=== PATIENT | female | born 1930 | race Caucasian/White ===

== ENCOUNTER 2016-11-19 19:08 | Inpatient (IN) | payer MEDICARE ==
[~2016-11-19] VITALS: Ht 152.4 cm; Wt 51.3 kg
[~2016-11-19 19:08] MED LIST: CITA40TA11 PO; DABI150C PO; DOCU-25 PO; DONE5TAB3 PO; LEVE250T2 PO; MAGN400T6 PO; METO-302 PO; MYRBETRIQ PO; POLY17PO4 PO; VITA1TAB28 PO
--- NOTE | 2016-11-19 19:10 | NUR ---
PT BIB DAUGHTER TO ER BED 07 STATING PT IS ACTIVELY HAVING SIEIZURE. PT GOWNED AND PLACED ON MONITOR. STABLE VITALS AT THIS TIME. PT IS AAO, DENIES PAIN. NOTED TO BE TOOTH GRINDING. PER FAMILY PT IS BEEN GRINDING TEETH X 2 YEARS. 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 AWAITING MD CASTILLO.
--- NOTE | 2016-11-19 20:34 | NUR ---
DR FLOYD AT BEDSIDE FOR EVAL.
[2016-11-19] MEDS ORDERED: LORAZEPAM INJ 2 MG/ML VIAL ONE (20:43)
[2016-11-19 20:52] LABS: BASOPHILS % (AUTO) 0.5 % (0.0-2.0); EOSINOPHILS % (AUTO) 0.6 % (0.0-6.0); HEMATOCRIT 40 % (33-45); HEMOGLOBIN 13.2 g/dL (11.5-14.8); LYMPHOCYTES # (AUTO) 0.9 /CMM (0.8-4.8); LYMPHOCYTES % (AUTO) 14.3 % (20.0-44.0); MEAN CORPUSCULAR HEMOGLOBIN 30 PG (26.0-33.0); MEAN CORPUSCULAR HGB CONC 33 g/dl (31.0-36.0); MEAN CORPUSCULAR VOLUME 91 fL (82-100); MONOCYTES # (AUTO) 0.4 /CMM (0.1-1.30); NEUTROPHILS # (AUTO) 4.8 /CMM (1.8-8.9); NEUTROPHILS % (AUTO) 78.6 % (43.0-81.0); PLATELET COUNT (AUTO) 223 /CMM (150-450); RDW COEFFICIENT OF VARIATION 13.1 (11.5-15.0); RED BLOOD CELL COUNT(AUTO) 4.37 MIL/uL (4.0-5.2); WHITE BLOOD COUNT (AUTO) 6.1 K/uL (4.3-11.0)
--- NOTE | 2016-11-19 20:54 | NUR ---
PT TO RADIOLOGY FOR HEAD CT SCAN VIA [facility].
[2016-11-19] MEDS ORDERED: LORAZEPAM INJ 2 MG/ML VIAL IVP ONE (21:00)
[2016-11-19 21:03] LABS: CALCIUM, SERUM 9.5 mg/dL (8.5-10.1); CARBON DIOXIDE 31 mmol/L (21-32); CHLORIDE 94 mmol/L (98-107); CREATININE 0.9 mg/dL (0.6-1.3); GLUCOSE 124 mg/dL (74-106); POTASSIUM 4.6 mmol/L (3.5-5.1); SODIUM SERUM 131 mmol/L (136-145); UREA NITROGEN, BLOOD 11 mg/dL (7-18)
[2016-11-19 21:06] LABS: PROTHROMBIN TIME 10.4 SECS (9.5-12.7)
[2016-11-19 21:11] LABS: TROPONIN I < 0.017 ng/mL (0.00-0.056)
--- NOTE | 2016-11-19 21:27 | NUR ---
CALLED NURSING COMPUTER INFORMATION SYSTEMS PROFESSOR FOR [facility] BED
[2016-11-19] MEDS ORDERED: MAG HYDROX/AL HYDROX/SIMETH 30 ML UDC PO PRN (21:30)
[2016-11-19] MEDS ORDERED: ONDANSETRON HCL/PF 4 MG/2 ML VIAL IVP PRN (21:30)
[2016-11-19] MEDS ORDERED: LORAZEPAM INJ 2 MG/ML VIAL IV PRN (21:30)
[2016-11-19] MEDS ORDERED: TEMAZEPAM 15 MG CAPSULE PO PRN (21:30)
[2016-11-19] MEDS ORDERED: Z GUARD REMEDY 2 OZ OINT TP PRN (21:30)
[2016-11-19] MEDS ORDERED: MAGNESIUM HYDROXIDE 30 ML UDC PO PRN (21:30)
[2016-11-19] MEDS ORDERED: ENOXAPARIN SODIUM 40 MG/0.4 ML DISP.SYRIN SQ SCH (21:30)
[2016-11-19 21:49] LABS: APPEARANCE,URINE Clear (CLEAR); BILIRUBIN,URINE Negative (NEGATIVE); BLOOD, URINE Negative Ery/uL (NEGATIVE); COLOR,URINE Yellow (YELLOW); KETONES,URINE Negative (NEGATIVE); LEUKOCYTE ESTERASE ,URINE Negative (NEGATIVE); NITRITE, URINE Negative (NEGATIVE); PROTEIN,URINE Negative (NEGATIVE); UGLUCOSE Negative (NEGATIVE); UROBILINOGEN,URINE 0.2 EU/dL (0.2)
--- NOTE | 2016-11-19 22:10 | NUR ---
NURSE STILL UNAVAILABLE TO TAKE REPORT.
--- NOTE | 2016-11-19 22:16 | NUR ---
REPORT GIVEN TO DESEAN. PT AWAITING TRANSFER TO FLOOR.
[2016-11-19 22:25] VITALS: BP 130/67
--- NOTE | 2016-11-19 23:15 | NUR ---
RN NOTES ADMITTED A PATIENT FROM ER VIA STRETCHER. NO ACUTE RESP DISTRESS. AOX 2 WITH CONFUSION SHOWS. ACCOMPANIED BY DAUGHTER. AFEBRILE. FOLLOWS COMMAND. PT DIAGNOSED WITH SEIZURE WITH HISTORY OF CVA, DEMENTIA, SEIZURE, A-FIB AND HYPOTHYROIDISM. NO KNOWN ALLERGIES. PLACED ON TELE MONITOR. REVEALS SB @ 55. IV SITE ON RAC G 18 INTACT AND PATENT. SKIN ASSESSMENT DONE NOTED WITH LEFT ARM SKIN TEAR, CLEANSED WITH NS PAT DRY APPLIED MEPILEX. OFFLOADED EXT WITH PILLOWS. CALLED AND SPOKE TO MICHAEL WALTERS AND VERIFIED ORDERS. KEPT PT CLEAN AND DRY WILL CONTINUE TO MONITOR.
[2016-11-19] MEDS ORDERED: DONEPEZIL 5 MG TABLET ONE (23:23)
[2016-11-19] MEDS ORDERED: ENOXAPARIN SODIUM 40 MG/0.4 ML DISP.SYRIN SQ ONE (23:24)
[2016-11-19] MEDS ORDERED: ATORVASTATIN 10 MG TABLET ONE (23:25)
[2016-11-19] MEDS: DONEPEZIL 5 MG TABLET PO SCH (23:27)
[2016-11-19] MEDS: ATORVASTATIN 10 MG TABLET PO SCH (23:27)
[2016-11-19] MEDS: IV NS 0.9% 1,000 ML IV PRN (23:28)
[2016-11-20] VITALS: BP 134/68
[2016-11-20 04:00] VITALS: BP 145/72
--- NOTE | 2016-11-20 05:50 | NUR ---
RN NOTES PT REMAINED IN STABLE CONDITION. NO EPISODE OF SEIZURE. BREATHING EVEN AND UNLABORED.SB HR 55 ON TELE MONITOR. PT IS EASILY FORGET ALWAYS WANTED TO URINATE IN THE BATHROOM THAT MAKE HER SITTING AND TRYING TO GO OOB. FREQUENTLY REMINDED ABOUT THE F/C WAS PLACED ON HER. PT FOLLOWED COMMAND AND UNDERSTAND BUT FORGETFUL. BED LOCKED AND SECURED PLACED IN LOWEST POSSIBLE POSITION. PT VS STABLE. KEPT PT CLEAN AND COMFORTABLE IN BED. CONTINUE TO MONITOR.
[2016-11-20 05:56] LABS: BASOPHILS % (AUTO) 0.4 % (0.0-2.0); EOSINOPHILS % (AUTO) 0.1 % (0.0-6.0); HEMATOCRIT 35 % (33-45); HEMOGLOBIN 12.2 g/dL (11.5-14.8); LYMPHOCYTES # (AUTO) 1.2 /CMM (0.8-4.8); LYMPHOCYTES % (AUTO) 22.4 % (20.0-44.0); MEAN CORPUSCULAR HEMOGLOBIN 31 PG (26.0-33.0); MEAN CORPUSCULAR HGB CONC 34 g/dl (31.0-36.0); MEAN CORPUSCULAR VOLUME 91 fL (82-100); MONOCYTES # (AUTO) 0.5 /CMM (0.1-1.30); MONOCYTES % (AUTO) 8.7 % (2.0-12.0); NEUTROPHILS # (AUTO) 3.7 /CMM (1.8-8.9); NEUTROPHILS % (AUTO) 68.4 % (43.0-81.0); PLATELET COUNT (AUTO) 188 /CMM (150-450); RDW COEFFICIENT OF VARIATION 14.3 (11.5-15.0); RED BLOOD CELL COUNT(AUTO) 3.89 MIL/uL (4.0-5.2); WHITE BLOOD COUNT (AUTO) 5.5 K/uL (4.3-11.0)
[2016-11-20 06:07] LABS: CARBON DIOXIDE 30 mmol/L (21-32); CHLORIDE 101 mmol/L (98-107); SODIUM SERUM 138 mmol/L (136-145)
[2016-11-20 06:20] LABS: CALCIUM, SERUM 8.8 mg/dL (8.5-10.1); CREATININE 0.8 mg/dL (0.6-1.3); GLUCOSE 79 mg/dL (74-106); MAGNESIUM 1.9 mg/dL (1.8-2.4); PHOSPHORUS 3.6 mg/dL (2.5-4.9); UREA NITROGEN, BLOOD 8 mg/dL (7-18)
[2016-11-20 08:00] VITALS: BP_SYST 133; BP_SYST 137; BP_DIAS 61; BP_DIAS 76
[2016-11-20] MEDS ORDERED: DONE5TAB34 PO (08:48)
[2016-11-20] MEDS ORDERED: AMIO200T2 PO (08:48)
[2016-11-20] MEDS ORDERED: ATOR10TA PO (08:48)
[2016-11-20] MEDS ORDERED: GABA-532 PO (08:48)
[2016-11-20] MEDS ORDERED: APIX2.5T PO (08:48)
[2016-11-20] MEDS ORDERED: LEVE100S PO (08:48)
[2016-11-20] MEDS ORDERED: ENOXAPARIN SODIUM 40 MG/0.4 ML DISP.SYRIN SQ SCH (08:53)
[2016-11-20 09:04] LABS: THYROID STIMULATING HORMONE 1.877 uIU/mL (0.358-3.74)
[2016-11-20 09:05] LABS: LDL 73 mg/dL (0-99); TRIGLYCERIDES 21 mg/dL (30-150)
[2016-11-20 09:17] LABS: CHOLESTEROL 191 mg/dL (<200); HDL CHOLESTEROL 107 mg/dL (40-60)
[2016-11-20] MEDS ORDERED: APIXABAN 2.5 MG TABLET PO ONE (09:30)
[2016-11-20] MEDS: GABAPENTIN 100 MG CAPSULE PO SCH (09:47)
[2016-11-20] MEDS: FAMOTIDINE/PF INJ 20 MG/2 ML VIAL IV SCH ×2 (09:47→18:11)
[2016-11-20] MEDS: LEVOTHYROXINE SODIUM 25 MCG TABLET PO SCH (09:47)
[2016-11-20] MEDS: AMIODARONE HCL 200 MG TABLET PO SCH (09:48)
[2016-11-20] MEDS: LEVETIRACETAM SOL (5 ML) 100 MG/ML UDC PO SCH ×2 (09:48→21:11)
[2016-11-20 09:57] LABS: BILIRUBIN,DIRECT 0.1 mg/dL (0.0-0.2); BILIRUBIN,TOTAL 0.5 mg/dL (0.2-1.0)
[2016-11-20 09:58] LABS: ALBUMIN 3.9 g/dL (3.4-5.0); TOTAL PROTEIN, SERUM 7.2 g/dL (6.4-8.2)
[2016-11-20] MEDS ORDERED: VALPROATE 750 MG in IV D5W 100 ML IV STA (10:00)
[2016-11-20 12:00] VITALS: BP_SYST 111; BP_SYST 115; BP_DIAS 57; BP_DIAS 69
--- NOTE | 2016-11-20 15:47 | NUR ---
RN NOTE LEFT MESSAGE TO DR HERRERA REGARDING VALPROIC ACID.
[2016-11-20 16:00] VITALS: BP 139/76
[2016-11-20] MEDS: APIXABAN 2.5 MG PO SCH (18:11)
[2016-11-20] MEDS: QUETIAPINE FUMARATE 25 MG TABLET PO SCH (18:33)
--- NOTE | 2016-11-20 19:35 | NUR ---
RN INITIAL NOTE RECEIVED PT IN NO ACUTE DISTRESS IN BED. PT IS A/O X 2 WITH PERIODS OF CONFUSION. PT HAS FAMILY AT BEDSIDE. PT IS ON TELE WITH SB @ 39. PT HAS F/C THAT IS CLEAN DRY INTACT AND PATENT WITH ALFONSO COLOR URINE DRAINING. PT HAS RAC 18G THAT IS CLEAN DRY INTACT AND PATENT WITH NS @ 75ML/HR INFUSING. BED IN LOW LOCK POSITION WITH RIALS UP X 2. CALL LIGHT WITHIN REACH AND ALL SAFETY MEASURES ENSURED AND CARRIED OUT. WILL CONTINUE TO MONITOR FOR ANY CHANGES IN CONDITION.
[2016-11-20 20:00] VITALS: BP 137/71
[2016-11-20] MEDS: DIVALPROEX SODIUM 500 MG TABLET.DR PO SCH (21:11)
[2016-11-20] MEDS: DONEPEZIL 5 MG TABLET PO SCH (21:11)
[2016-11-20] MEDS: ATORVASTATIN 10 MG TABLET PO SCH (21:11)
[2016-11-21] VITALS: BP 122/73
[2016-11-21 04:00] VITALS: BP 151/82
[2016-11-21] MEDS: IV NS 0.9% 1,000 ML IV PRN (04:51)
--- NOTE | 2016-11-21 06:47 | NUR ---
RN CLOSING NOTE PT REMAINS IN NO ACUTE DISTRESS IN BED. PT DID NOT HAVE ANY SIGNIFICANT CHANGE IN CONDITION DURING SHIFT. ALL NEEDS MET, ALL ORDERS CARRIED OUT. WILL ENDORSE CARE TO AM RN FOR CONTINUITY OF CARE.
--- NOTE | 2016-11-21 07:27 | NUR ---
RN NOTES PT RECEIVED IN STABLE CONDITION. A&OX2 WITH PERIODS OF CONFUSION, PT REORIENTED. CAREGIVER AT BEDSIDE. ON ROOM AIR NO DISTRESS NOTED. SB ON THE MONITOR HR 49. CRUZ DRAINING TO GRAVITY. RFA 20 GAUGE IV SITE DRY AND INTACT IVF RUNNING AT 75ML/HR. BED LOCKED AND IN LOWEST POSITION, SIDE RAILS UPX3, CALL LIGHT WITHIN REACH. WILL CONT TO MONITOR.
[2016-11-21 08:00] VITALS: BP 137/76
[2016-11-21] MEDS: FAMOTIDINE/PF INJ 20 MG/2 ML VIAL IV SCH ×2 (08:12→16:11)
[2016-11-21] MEDS: LEVETIRACETAM SOL (5 ML) 100 MG/ML UDC PO SCH ×2 (08:12→21:23)
[2016-11-21] MEDS: CALCIUM CARB 600MG /VIT D 1 EACH TABLET PO SCH (08:13)
[2016-11-21] MEDS: DIVALPROEX SODIUM 500 MG TABLET.DR PO SCH ×2 (08:13→21:17)
[2016-11-21] MEDS: QUETIAPINE FUMARATE 25 MG TABLET PO SCH ×2 (08:13→16:11)
[2016-11-21] MEDS: LEVOTHYROXINE SODIUM 25 MCG TABLET PO SCH (08:13)
[2016-11-21] MEDS: GABAPENTIN 100 MG CAPSULE PO SCH (08:13)
[2016-11-21] MEDS: APIXABAN 2.5 MG PO SCH ×2 (08:15→16:11)
[2016-11-21] MEDS: AMIODARONE HCL 200 MG TABLET PO SCH (08:28)
[2016-11-21 12:00] VITALS: BP 135/71
--- NOTE | 2016-11-21 13:00 | NUR ---
RN NOTES HEALTH LEAD ANTHONY RIDLEY AT BEDSIDE, NOTIFIED OF PINK TINGED URINE, URINALYSIS ORDERED.
--- NOTE | 2016-11-21 13:39 | NUR ---
RN NOTES URINE SPECIMEN COLLECTED, CALLED LAB, THEN CRUZ DISCONTINUED PER ROMEO RIDLEY.
[2016-11-21] MEDS ORDERED: LEVO25TA7 PO (13:42)
[2016-11-21] MEDS ORDERED: DIVA500T2 PO (13:42)
[2016-11-21] MEDS ORDERED: Calcium Carb 600MG /Vit D PO (13:42)
[2016-11-21] MEDS ORDERED: LEVE100S PO (13:42)
[2016-11-21 13:53] LABS: BASOPHILS % (AUTO) 0.3 % (0.0-2.0); EOSINOPHILS % (AUTO) 0.5 % (0.0-6.0); HEMATOCRIT 35 % (33-45); HEMOGLOBIN 11.8 g/dL (11.5-14.8); LYMPHOCYTES # (AUTO) 0.9 /CMM (0.8-4.8); LYMPHOCYTES % (AUTO) 15.3 % (20.0-44.0); MEAN CORPUSCULAR HEMOGLOBIN 31 PG (26.0-33.0); MEAN CORPUSCULAR HGB CONC 34 g/dl (31.0-36.0); MEAN CORPUSCULAR VOLUME 92 fL (82-100); MONOCYTES # (AUTO) 0.4 /CMM (0.1-1.30); MONOCYTES % (AUTO) 7.3 % (2.0-12.0); NEUTROPHILS # (AUTO) 4.7 /CMM (1.8-8.9); NEUTROPHILS % (AUTO) 76.6 % (43.0-81.0); PLATELET COUNT (AUTO) 200 /CMM (150-450); RDW COEFFICIENT OF VARIATION 13.9 (11.5-15.0); RED BLOOD CELL COUNT(AUTO) 3.84 MIL/uL (4.0-5.2); WHITE BLOOD COUNT (AUTO) 6.1 K/uL (4.3-11.0)
[2016-11-21] MEDS: ACETAMINOPHEN 325 MG TABLET PO PRN (13:55)
[2016-11-21 13:56] LABS: APPEARANCE,URINE CLOUDY (CLEAR); BILIRUBIN,URINE NEGATIVE (NEGATIVE); BLOOD, URINE 3+ Ery/uL (NEGATIVE); COLOR,URINE YELLOW (YELLOW); KETONES,URINE TRACE (NEGATIVE); LEUKOCYTE ESTERASE ,URINE 1+ (NEGATIVE); NITRITE, URINE POSITIVE (NEGATIVE); PH,URINE 7.5 (5.0-8.0); PROTEIN,URINE 1+ mg/dl (NEGATIVE); UGLUCOSE NEGATIVE (NEGATIVE); UROBILINOGEN,URINE 0.2 EU/dL (0.2)
[2016-11-21 14:03] LABS: CALCIUM, SERUM 8.6 mg/dL (8.5-10.1); CARBON DIOXIDE 28 mmol/L (21-32); CHLORIDE 105 mmol/L (98-107); CREATININE 0.8 mg/dL (0.6-1.3); GLUCOSE 98 mg/dL (74-106); POTASSIUM 4.7 mmol/L (3.5-5.1); SODIUM SERUM 141 mmol/L (136-145); UREA NITROGEN, BLOOD 7 mg/dL (7-18)
[2016-11-21 14:57] LABS: BACTERIA,URINE Rare /HPF (None Seen); RBC,URINE 81-100 /HPF (0-2); SQUAMOUS EPITHELIAL CELL,UR Few /HPF (None Seen)
[2016-11-21 16:00] VITALS: BP 149/84
[2016-11-21] MEDS: NITROFURANTOIN/NITROFURAN MAC 100 MG CAPSULE PO SCH ×2 (16:11→21:17)
--- NOTE | 2016-11-21 18:22 | NUR ---
RN NOTES PT HAVING DINNER IN BED WITH DAUGHTER AT THE BEDSIDE ASSISTING HER. PT REMAINED IN STABLE CONDITION THROUGHOUT THE SHIFT. NO SIGNIFICANT CHANGES NOTED. NO NEW ONSET OF SEIZURES NOTED. ALL NEEDS MET. WILL ENDORSE REPORT TO ONCOMING SHIFT.
--- NOTE | 2016-11-21 19:45 | NUR ---
[facility]/AVIATION NEUROPSYCHOLOGIST DAUGHTER AT BEDSIDE GOING HOME NOW, BED ALARM WAS PLACED ON DUE TO NOBODY BEING ROOM. CAREGIVER IS GOING HOME, TOO AT THIS TIME. CAREGIVER IS ONLY TO BE IN ROOM WHILE DAUGHTER IS THERE.
[2016-11-21 20:00] VITALS: BP 139/83
[2016-11-21] MEDS: ATORVASTATIN 10 MG TABLET PO SCH (21:16)
[2016-11-21] MEDS: DONEPEZIL 5 MG TABLET PO SCH (21:17)
--- NOTE | 2016-11-21 22:20 | NUR ---
MARILY/WEB DESIGNER DEVELOPER PT HAS TRIED MANY TIMES TO GET OUT OF BED, ALARM IS SET. CHARGE NURSE AWARE OF THE ISSUES WITH PT. CONVEYANCER IS SITTING AND WATCHING PT UNTIL NURSE IS ABLE TO SIT WITH PT.
[2016-11-22] VITALS: BP_SYST 145; BP_DIAS 52; BP_DIAS 82
--- NOTE | 2016-11-22 02:30 | NUR ---
MARILY/CUFF SETTER LOCKSTITCH PT APPEARS TO BE SLEEPING, RESTING COMFORTABLE. NO ACUTE DISTRESS SEEN AT THIS TIME.
[2016-11-22 04:00] VITALS: BP 119/64
[2016-11-22] MEDS: IV NS 0.9% 1,000 ML IV PRN ×2 (05:56→21:35)
[2016-11-22 06:52] LABS: BASOPHILS % (AUTO) 0.6 % (0.0-2.0); EOSINOPHILS # (AUTO) 0.1 /CMM (0.0-0.7); EOSINOPHILS % (AUTO) 2.3 % (0.0-6.0); HEMATOCRIT 37 % (33-45); HEMOGLOBIN 12.7 g/dL (11.5-14.8); LYMPHOCYTES # (AUTO) 1.3 /CMM (0.8-4.8); LYMPHOCYTES % (AUTO) 29.3 % (20.0-44.0); MEAN CORPUSCULAR HEMOGLOBIN 31 PG (26.0-33.0); MEAN CORPUSCULAR HGB CONC 34 g/dl (31.0-36.0); MEAN CORPUSCULAR VOLUME 92 fL (82-100); MONOCYTES # (AUTO) 0.4 /CMM (0.1-1.30); MONOCYTES % (AUTO) 8.8 % (2.0-12.0); NEUTROPHILS # (AUTO) 2.7 /CMM (1.8-8.9); PLATELET COUNT (AUTO) 203 /CMM (150-450); RDW COEFFICIENT OF VARIATION 14.4 (11.5-15.0); RED BLOOD CELL COUNT(AUTO) 4.05 MIL/uL (4.0-5.2); WHITE BLOOD COUNT (AUTO) 4.6 K/uL (4.3-11.0)
[2016-11-22 07:19] LABS: ALANINE AMINOTRANSFERASE 21 U/L (12-78); ALBUMIN 3.6 g/dL (3.4-5.0); ALKALINE PHOSPHATASE 77 U/L (46-116); ASPARTATE AMINOTRANSFERASE 18 U/L (15-37); BILIRUBIN,TOTAL 0.5 mg/dL (0.2-1.0); CALCIUM, SERUM 9.3 mg/dL (8.5-10.1); CARBON DIOXIDE 30 mmol/L (21-32); CHLORIDE 105 mmol/L (98-107); CREATININE 0.9 mg/dL (0.6-1.3); GLUCOSE 75 mg/dL (74-106); PHOSPHORUS 3.8 mg/dL (2.5-4.9); POTASSIUM 4.3 mmol/L (3.5-5.1); SODIUM SERUM 143 mmol/L (136-145); TOTAL PROTEIN, SERUM 6.9 g/dL (6.4-8.2); UREA NITROGEN, BLOOD 6 mg/dL (7-18)
[2016-11-22 08:00] VITALS: BP 138/62
--- NOTE | 2016-11-22 08:00 | NUR ---
SOA ARCHITECT NOTE PATIENT IN BED . ALL NEEDS ATTENDED VERY RESTLESS AND TRUING TO GET OUT OFF BED , BED ALARM IN PLACE, ON TELE MONITOR SB 42 WITH PAC , RT FA HL INTACT ON IVF ORDERED , BED IN LOWEST AND LOCKED POSITION , BOTH SIDE RAILS UP FOR PATIENT SAFETY , WILL CONT TO MONITOR CLOSELY NO SOB AT THIS TIME , PLAN OF CARE DISCUSSED WITH PATIENT
--- NOTE | 2016-11-22 09:00 | NUR ---
REFINERY OPERATOR VAPOR RECOVERY UNIT NOTE TRYING TO GET OUT OFF BED ,ATIVAN 1MG IVP GIVEN ORDERED ,WILL CONT TO MONITOR CLOSELY
--- NOTE | 2016-11-22 10:00 | NUR ---
ROLLOFF TRUCK DRIVER NOTE SPOKE WITH DR CARREON CERTIFIED CORPORATE TRAVEL EXECUTIVE , NOTIFIED THAT HR 45-45 ON AMIODARONE 200 MG ,STATED OK TO GIVE
[2016-11-22] MEDS: NITROFURANTOIN/NITROFURAN MAC 100 MG CAPSULE PO SCH ×2 (10:01→20:46)
[2016-11-22] MEDS: FAMOTIDINE/PF INJ 20 MG/2 ML VIAL IV SCH ×2 (10:01→17:18)
[2016-11-22] MEDS: CALCIUM CARB 600MG /VIT D 1 EACH TABLET PO SCH (10:01)
[2016-11-22] MEDS: GABAPENTIN 100 MG CAPSULE PO SCH (10:01)
[2016-11-22] MEDS: LEVETIRACETAM SOL (5 ML) 100 MG/ML UDC PO SCH ×2 (10:01→20:46)
[2016-11-22] MEDS: QUETIAPINE FUMARATE 25 MG TABLET PO SCH ×2 (10:02→17:18)
[2016-11-22] MEDS: LEVOTHYROXINE SODIUM 25 MCG TABLET PO SCH (10:02)
[2016-11-22] MEDS: DIVALPROEX SODIUM 500 MG TABLET.DR PO SCH ×2 (10:08→20:46)
[2016-11-22] MEDS: APIXABAN 2.5 MG PO SCH ×2 (10:10→17:19)
[2016-11-22] MEDS: AMIODARONE HCL 200 MG TABLET PO SCH (10:16)
--- NOTE | 2016-11-22 12:12 | NUR ---
MS RN NOTE ANTHONY TATUM MANAGER OF DATA AT BEDSIDE, AWARE THAT ENA HARO WAS VERY RESTLESS AND TRYING TO GET OUT OFF BED , ATIVAN WAS GIVEN AT 0900 , STATED THAT WILL CHECK HER MEDS , SPOKE WITH PATIENT DAUGHTER
[2016-11-22 16:00] VITALS: BP 138/75
--- NOTE | 2016-11-22 18:09 | NUR ---
MS RN NOTE HAVING DINNER , DAUGHTER AT BEDSIDE, FED BY DAUGHTER , WILL CONT TO MONITOR CLOSELY
[2016-11-22 20:00] VITALS: BP 126/64
[2016-11-22] MEDS: ATORVASTATIN 10 MG TABLET PO SCH (21:34)
[2016-11-22] MEDS: DONEPEZIL 5 MG TABLET PO SCH (21:34)
[2016-11-23 04:00] VITALS: BP 142/64
[2016-11-23 08:00] VITALS: BP 144/70
[2016-11-23] MEDS: NITROFURANTOIN/NITROFURAN MAC 100 MG CAPSULE PO SCH (08:01)
[2016-11-23] MEDS: LEVOTHYROXINE SODIUM 25 MCG TABLET PO SCH (08:01)
[2016-11-23] MEDS: CALCIUM CARB 600MG /VIT D 1 EACH TABLET PO SCH (08:02)
[2016-11-23] MEDS: GABAPENTIN 100 MG CAPSULE PO SCH (08:02)
[2016-11-23] MEDS: DIVALPROEX SODIUM 500 MG TABLET.DR PO SCH (08:02)
[2016-11-23] MEDS: APIXABAN 2.5 MG PO SCH (08:02)
[2016-11-23] MEDS: LEVETIRACETAM SOL (5 ML) 100 MG/ML UDC PO SCH (08:02)
[2016-11-23] MEDS: QUETIAPINE FUMARATE 25 MG TABLET PO SCH (08:03)
[2016-11-23] MEDS: AMIODARONE HCL 200 MG TABLET PO SCH (08:25)
[2016-11-23] MEDS: FAMOTIDINE/PF INJ 20 MG/2 ML VIAL IV SCH (09:45)
[2016-11-23] MEDS: ACETAMINOPHEN 325 MG TABLET PO PRN (12:23)
[2016-11-23] MEDS ORDERED: NITR100C6 PO (14:54)
[2016-11-23] MEDS ORDERED: QUET25TA PO (15:13)
[2016-11-23] MEDS ORDERED: SULF1TAB48 PO (15:24)
[2016-11-23] MEDS ORDERED: ASPI325T2 PO (15:57)
[2016-11-23 16:00] VITALS: BP 157/77
--- NOTE | 2016-11-23 17:00 | NUR ---
RN NOTE PT DISCHARGED HOME WITH DAUGHTER AND CAREGIVER VIA PRIVATE CAR IN STABLE CONDITION, IV REMOVED, ID BAND REMOVED, EXIT CARE DONE, DISCHARGE INSTRUCTIONS GIVEN TO DAUGHTER, PAPERS SIGNED, PRESCRIPTIONS GIVEN TO DAUGHTER., VERBALIZED UNDERSTANDING. BELONGINGS LIST SIGNED, BELONGINGS AND MEDS GIVEN TO DAUGHTER.
== END 2016-11-23 17:15 | disposition home or self-care (01) | DRG 100 ==
LOC: ER 19:09 → TELE-TD 22:06 → TELE1 11-20 06:04 → MEDSG1 11-22 10:33
PROVIDERS: ADMIT Nurse Practitioner Acute Care; ATTEND Nurse Practitioner Acute Care
DX: G40.909 Epilepsy, unspecified, not intractable, without status epilepticus (principal); G92 Toxic encephalopathy; D68.59 Other primary thrombophilia; I48.0 Paroxysmal atrial fibrillation; I69.354 Hemiplegia and hemiparesis following cerebral infarction affecting left non-dominant side; E87.1 Hypo-osmolality and hyponatremia; F03.90 Unspecified dementia, unspecified severity, without behavioral disturbance, psychotic disturbance, mood disturbance, and anxiety; N39.0 Urinary tract infection, site not specified; I48.91 Unspecified atrial fibrillation; E03.9 Hypothyroidism, unspecified; E78.5 Hyperlipidemia, unspecified; F32.9 Major depressive disorder, single episode, unspecified; I10 Essential (primary) hypertension; I70.0 Atherosclerosis of aorta; I67.2 Cerebral atherosclerosis; Z79.01 Long term (current) use of anticoagulants; Z79.899 Other long term (current) drug therapy; Z90.49 Acquired absence of other specified parts of digestive tract; Z98.890 Other specified postprocedural states; R31.9 Hematuria, unspecified; B95.62 Methicillin resistant Staphylococcus aureus infection as the cause of diseases classified elsewhere
CPT/HCPCS: 36415; 70450-TC; 71010-TC; 80048-TC; 80053-TC; 80061-TC; 80076-TC; 80164-TC; 81000-TC; 82962-TC; 83735-TC; 84100-TC; 84443-TC; 84484-TC; 85025-TC; 85730-TC; 87081-TC; 87086-TC; 87186-TC; 97116-TC; 97530-TC; J1650; J1953; J2060; J3490; J7030; J7042; J7060; Z7610

== ENCOUNTER 2016-12-23 19:42 | Inpatient (IN) | payer MEDICARE ==
[~2016-12-23] VITALS: Ht 170.2 cm; Wt 46.8 kg
[~2016-12-23 19:42] MED LIST changes: +AMIO200T2 PO; +APIX2.5T PO; +ASPI325T2 PO; +ATOR10TA PO; -CITA40TA11 PO; +Calcium Carb 600MG /Vit D PO; -DABI150C PO; +DIVA500T2 PO; -DOCU-25 PO; -DONE5TAB3 PO; +DONE5TAB34 PO; +GABA-532 PO; +LEVE100S PO; -LEVE250T2 PO; +LEVO25TA7 PO; -MAGN400T6 PO; -METO-302 PO; -MYRBETRIQ PO; -POLY17PO4 PO; +QUET25TA PO; +SULF1TAB48 PO; -VITA1TAB28 PO
[2016-12-23 20:01] LABS: BASOPHILS % (AUTO) 0.3 % (0.0-2.0); EOSINOPHILS % (AUTO) 0.2 % (0.0-6.0); HEMATOCRIT 34 % (33-45); HEMOGLOBIN 11.5 g/dL (11.5-14.8); LYMPHOCYTES # (AUTO) 0.7 /CMM (0.8-4.8); LYMPHOCYTES % (AUTO) 10.8 % (20.0-44.0); MEAN CORPUSCULAR HEMOGLOBIN 32 PG (26.0-33.0); MEAN CORPUSCULAR HGB CONC 34 g/dl (31.0-36.0); MEAN CORPUSCULAR VOLUME 92 fL (82-100); MONOCYTES # (AUTO) 0.3 /CMM (0.1-1.30); MONOCYTES % (AUTO) 5.5 % (2.0-12.0); NEUTROPHILS % (AUTO) 83.2 % (43.0-81.0); PLATELET COUNT (AUTO) 173 /CMM (150-450); RDW COEFFICIENT OF VARIATION 13.9 (11.5-15.0); RED BLOOD CELL COUNT(AUTO) 3.66 MIL/uL (4.0-5.2)
[2016-12-23 20:22] LABS: ALANINE AMINOTRANSFERASE 16 U/L (12-78); ALBUMIN 3.6 g/dL (3.4-5.0); ALKALINE PHOSPHATASE 55 U/L (46-116); ASPARTATE AMINOTRANSFERASE 19 U/L (15-37); BILIRUBIN,DIRECT 0.1 mg/dL (0.0-0.2); BILIRUBIN,TOTAL 0.3 mg/dL (0.2-1.0); CALCIUM, SERUM 8.7 mg/dL (8.5-10.1); CARBON DIOXIDE 25 mmol/L (21-32); CHLORIDE 98 mmol/L (98-107); GLUCOSE 180 mg/dL (74-106); SODIUM SERUM 133 mmol/L (136-145); TOTAL PROTEIN, SERUM 6.6 g/dL (6.4-8.2); UREA NITROGEN, BLOOD 12 mg/dL (7-18)
[2016-12-23 20:28] LABS: APPEARANCE,URINE CLEAR (CLEAR); BILIRUBIN,URINE NEGATIVE (NEGATIVE); BLOOD, URINE TRACE-INTA Ery/uL (NEGATIVE); COLOR,URINE YELLOW (YELLOW); KETONES,URINE NEGATIVE (NEGATIVE); LEUKOCYTE ESTERASE ,URINE 1+ (NEGATIVE); NITRITE, URINE POSITIVE (NEGATIVE); PH,URINE 6.5 (5.0-8.0); PROTEIN,URINE 1+ mg/dl (NEGATIVE); UGLUCOSE NEGATIVE (NEGATIVE); UROBILINOGEN,URINE 0.2 EU/dL (0.2)
[2016-12-23 21:03] LABS: BACTERIA,URINE Many /HPF (None Seen); RBC,URINE 0-2 /HPF (0-2); SQUAMOUS EPITHELIAL CELL,UR Few /HPF (None Seen)
[2016-12-23 21:15] LABS: INR 1.08 (0.87-1.13); PROTHROMBIN TIME 11.2 SECS (9.5-12.7)
[2016-12-23 21:40] LABS: TROPONIN I 0.033 ng/mL (0.00-0.056)
[2016-12-23 22:05] VITALS: BP 115/79
[2016-12-23 22:20] VITALS: BP 115/75
[2016-12-24] VITALS: BP 104/65
[2016-12-24 04:00] VITALS: BP 101/64
[2016-12-24 06:35] LABS: BASOPHILS % (AUTO) 0.3 % (0.0-2.0); EOSINOPHILS % (AUTO) 0.1 % (0.0-6.0); HEMATOCRIT 34 % (33-45); HEMOGLOBIN 11.5 g/dL (11.5-14.8); LYMPHOCYTES % (AUTO) 13.1 % (20.0-44.0); MEAN CORPUSCULAR HEMOGLOBIN 31 PG (26.0-33.0); MEAN CORPUSCULAR HGB CONC 34 g/dl (31.0-36.0); MEAN CORPUSCULAR VOLUME 93 fL (82-100); MONOCYTES # (AUTO) 0.6 /CMM (0.1-1.30); NEUTROPHILS % (AUTO) 78.5 % (43.0-81.0); PLATELET COUNT (AUTO) 160 /CMM (150-450); RDW COEFFICIENT OF VARIATION 14.9 (11.5-15.0); RED BLOOD CELL COUNT(AUTO) 3.67 MIL/uL (4.0-5.2); WHITE BLOOD COUNT (AUTO) 7.6 K/uL (4.3-11.0)
[2016-12-24 06:59] LABS: ALANINE AMINOTRANSFERASE 16 U/L (12-78); ALBUMIN 3.4 g/dL (3.4-5.0); ALKALINE PHOSPHATASE 54 U/L (46-116); ASPARTATE AMINOTRANSFERASE 22 U/L (15-37); BILIRUBIN,TOTAL 0.4 mg/dL (0.2-1.0); CALCIUM, SERUM 8.4 mg/dL (8.5-10.1); CARBON DIOXIDE 28 mmol/L (21-32); CHLORIDE 109 mmol/L (98-107); CREATININE 0.8 mg/dL (0.6-1.3); GLUCOSE 77 mg/dL (74-106); MAGNESIUM 1.9 mg/dL (1.8-2.4); PHOSPHORUS 3.3 mg/dL (2.5-4.9); POTASSIUM 3.8 mmol/L (3.5-5.1); SODIUM SERUM 143 mmol/L (136-145); TOTAL PROTEIN, SERUM 6.1 g/dL (6.4-8.2); UREA NITROGEN, BLOOD 7 mg/dL (7-18)
[2016-12-24 07:03] LABS: CHOLESTEROL 175 mg/dL (<200); HDL CHOLESTEROL 102 mg/dL (40-60); LDL 68 mg/dL (0-99); THYROID STIMULATING HORMONE 1.338 uIU/mL (0.358-3.74); TRIGLYCERIDES 29 mg/dL (30-150)
[2016-12-24 08:00] VITALS: BP 98/60
[2016-12-24 16:00] VITALS: BP 105/61
[2016-12-24 20:00] VITALS: BP 129/79
[2016-12-25 06:41] LABS: CALCIUM, SERUM 8.9 mg/dL (8.5-10.1); CARBON DIOXIDE 29 mmol/L (21-32); CHLORIDE 107 mmol/L (98-107); CREATININE 0.9 mg/dL (0.6-1.3); GLUCOSE 101 mg/dL (74-106); POTASSIUM 4.4 mmol/L (3.5-5.1); SODIUM SERUM 141 mmol/L (136-145); UREA NITROGEN, BLOOD 4 mg/dL (7-18)
[2016-12-25 08:00] VITALS: BP 113/65
[2016-12-25 16:00] VITALS: BP 112/65
[2016-12-25 20:00] VITALS: BP 140/83
[2016-12-26 06:50] LABS: BASOPHILS % (AUTO) 0.4 % (0.0-2.0); EOSINOPHILS % (AUTO) 0.5 % (0.0-6.0); HEMATOCRIT 37 % (33-45); HEMOGLOBIN 12.2 g/dL (11.5-14.8); LYMPHOCYTES % (AUTO) 17.1 % (20.0-44.0); MEAN CORPUSCULAR HEMOGLOBIN 31 PG (26.0-33.0); MEAN CORPUSCULAR HGB CONC 33 g/dl (31.0-36.0); MEAN CORPUSCULAR VOLUME 94 fL (82-100); MONOCYTES # (AUTO) 0.5 /CMM (0.1-1.30); MONOCYTES % (AUTO) 8.3 % (2.0-12.0); NEUTROPHILS # (AUTO) 4.4 /CMM (1.8-8.9); NEUTROPHILS % (AUTO) 73.7 % (43.0-81.0); PLATELET COUNT (AUTO) 144 /CMM (150-450); RDW COEFFICIENT OF VARIATION 15.6 (11.5-15.0); RED BLOOD CELL COUNT(AUTO) 3.91 MIL/uL (4.0-5.2)
[2016-12-26 07:23] LABS: CALCIUM, SERUM 9.2 mg/dL (8.5-10.1); CARBON DIOXIDE 24 mmol/L (21-32); CHLORIDE 111 mmol/L (98-107); CREATININE 0.8 mg/dL (0.6-1.3); GLUCOSE 83 mg/dL (74-106); POTASSIUM 4.1 mmol/L (3.5-5.1); SODIUM SERUM 145 mmol/L (136-145); UREA NITROGEN, BLOOD 7 mg/dL (7-18)
[2016-12-26 08:00] VITALS: BP 125/75
[2016-12-26] MEDS ORDERED: LEVO750T21 PO (10:25)
== END 2016-12-26 14:28 | disposition home health service (06) | DRG 871 ==
LOC: ER 19:44 → TELE 22:04 → MED 12-24 08:49
PROVIDERS: ADMIT Internal Medicine; ATTEND Internal Medicine
DX: A41.9 Sepsis, unspecified organism (principal); E43 Unspecified severe protein-calorie malnutrition; G93.49 Other encephalopathy; D68.59 Other primary thrombophilia; I69.354 Hemiplegia and hemiparesis following cerebral infarction affecting left non-dominant side; N39.0 Urinary tract infection, site not specified; I11.9 Hypertensive heart disease without heart failure; G40.909 Epilepsy, unspecified, not intractable, without status epilepticus; F01.50 Vascular dementia, unspecified severity, without behavioral disturbance, psychotic disturbance, mood disturbance, and anxiety; I48.91 Unspecified atrial fibrillation; E03.9 Hypothyroidism, unspecified; Z87.891 Personal history of nicotine dependence; Z79.82 Long term (current) use of aspirin; I73.9 Peripheral vascular disease, unspecified; B96.20 Unspecified Escherichia coli [E. coli] as the cause of diseases classified elsewhere
CPT/HCPCS: 36415; 70450-TC; 71010-TC; 80048-TC; 80053-TC; 80061-TC; 80076-TC; 80164-TC; 80305; 81000-TC; 82962-TC; 83605-TC; 83735-TC; 84100-TC; 84443-TC; 84484-TC; 85025-TC; 85730-TC; 87040-TC; 87081-TC; 87086-TC; 87186-TC; 92611-TC; 97116-TC; 97530-TC; A4606; J1953; J2543; J3370; J3490; J7030; J7040; J7042; J7060; Z7610